=== PATIENT | female | born 1990 | race American Indian/Alaskan Native ===

== ENCOUNTER 2017-04-01 11:59 | Emergency (ER) | payer OTHER ==
[2017-04-01 12:21] VITALS: BP 118/66
--- NOTE | 2017-04-01 13:56 | Emergency Department Report ---
ED Female HPI - General Chief complaint: Urogenital-Female Stated complaint: STD,DISCHARGE Time Seen by Provider: 04/01/17 13:10 Source: patient Mode of arrival: Ambulatory Limitations: No Limitations - Related Data Allergies Allergy/AdvReac Type Severity Reaction Status Date / Time No Known Allergies Allergy Unverified 04/01/17 12:21 ED Review of Systems ROS: Stated complaint: STD,DISCHARGE Other details as noted in HPI ED Past Medical Hx - Past Medical History Previous Medical History?: No - Surgical History Past Surgical History?: No - Social History Smoking Status: Current Every Day Smoker Substance Use Type: None ED Physical Exam - General Limitations: No Limitations ED Course Vital Signs 04/01/17 12:18 Temperature 99 F Pulse Rate 99 H Respiratory 18 Rate Blood Pressure 118/66 O2 Sat by Pulse 100 Oximetry Critical care attestation.: If time is entered above; I have spent that time in minutes in the direct care of this critically ill patient, excluding procedure time. ED Disposition Condition: Stable Referrals: PRIMARY CARE [Primary Care Provider] - 3-5 Days
[2017-04-01 14:03] LABS: Bilirubin,Urine NEG (Negative); Blood,Urine NEG (Negative); Ketones,Urine NEG (Negative); Leukocyte Esterase,Urine LG (Negative); Mucus,Urine 1+ /HPF; Nitrite,Urine NEG (Negative); Protein,Urine <15 mg/dL mg/dL (Negative)
== END 2017-04-01 16:00 | disposition left against medical advice (07) ==
LOC: ED 11:59
DX: Z53.21 Procedure and treatment not carried out due to patient leaving prior to being seen by health care provider (principal)
CPT/HCPCS: 81001; 81025; 87591

== ENCOUNTER 2017-04-03 13:31 | Emergency (ER) | payer OTHER ==
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
[2017-04-03 17:52] LABS: Bilirubin,Urine NEG (Negative); Blood,Urine SM (Negative); Ketones,Urine NEG (Negative); Leukocyte Esterase,Urine MOD (Negative); Mucus,Urine 3+ /HPF; Nitrite,Urine NEG (Negative); Protein,Urine <15 mg/dL mg/dL (Negative); Urobilinogen,Urine < 2.0 mg/dL (<2.0)
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
[2017-04-03] MEDS ORDERED: ZITHROMAX PO ONE (19:02)
[2017-04-03 19:12] VITALS: BP 117/72
== END 2017-04-03 19:11 | disposition home or self-care (01) ==
LOC: ED 13:31
DX: S05.11XA Contusion of eyeball and orbital tissues, right eye, initial encounter (principal); N76.0 Acute vaginitis; H53.2 Diplopia; F17.200 Nicotine dependence, unspecified, uncomplicated; F12.10 Cannabis abuse, uncomplicated; X58.XXXA Exposure to other specified factors, initial encounter; Y93.89 Activity, other specified; Y92.89 Other specified places as the place of occurrence of the external cause; Y99.8 Other external cause status
CPT/HCPCS: 70480; 81001; 81025; 87210; 87591